=== PATIENT | male | born 1945 | race Caucasian/White ===

== ENCOUNTER 2018-03-26 04:53 | Inpatient (IN) ==
[2018-03-26] MEDS ORDERED: KETOROLAC 30 MG/1 ML VIAL IV STA (05:25)
[2018-03-26] MEDS ORDERED: ASPIRIN 325 MG TABLET PO STA (05:25)
[2018-03-26 05:49] LABS: Basophils % 0.3 % (0.0-0.8); Eosinophils # 0.2 10*3/uL (0.0-0.87); Eosinophils % 2.9 % (0.00-10.9); Hematocrit 37.4 VOL% (42.0-52.0); Hemoglobin 12.9 GM/DL (14.0-18.0); Immature Granulocytes % 0.5 %; Immature Granulocytes Absolute 0.04 #; Lymphocytes # 1.9 10*3/uL (1.4-4.0); Lymphocytes % 25.2 % (21.2-54.2); Mean Corpuscular HGB Conc 34.5 GM/DL (32-36); Mean Corpuscular Hemoglobin 27 PG (27-34); Mean Corpuscular Volume 79.4 FL (87-102); Mean Platelet Volume 9.9 FL (9.6-12.0); Monocytes # 0.6 10*3/uL (0.11-0.8); Monocytes % 8.1 % (1.7-12.7); Neutrophils # 4.8 10*3/uL (1.4-7.4); Platelet Count 242 T/CUMM (130-400); Red Blood Count 4.71 MC/CUMM (3.8-5.5); Red Cell Distribution Width 13.1 % (9.3-17.3); White Blood Count 7.6 T/CUMM (4-12)
[2018-03-26 06:10] LABS: Albumin 2.8 G/DL (3.4-5.0); Bilirubin,Total 1.3 MG/DL (0.2-1.0); Calcium 9.5 MG/DL (8.5-10.1); Osmolality,Calculated 281.1 MOS/KG (273-304); Potassium 3.7 MMOL/L (3.5-5.1)
[2018-03-26] MEDS ORDERED: ACETAMINOPHEN 325 MG TABLET PO PRN (08:39)
[2018-03-26] MEDS ORDERED: ONDANSETRON 4 MG/2 ML VIAL IV PRN (08:39)
[2018-03-26] MEDS ORDERED: GLUCAGON 1 MG VIAL IM PRN (08:45)
[2018-03-26] MEDS ORDERED: DEXTROSE 50% 25 GM/50 ML VIAL IV PRN (08:45)
[2018-03-26] MEDS ORDERED: MORPHINE 4 MG/1 ML VIAL IV PRN (08:47)
[2018-03-26 10:27] LABS: Hepatitis A Ab IgM Quant 0.13 Index; Hepatitis A Ab IgM Result Negative (Negative); Hepatitis B Core IgM Result Negative (Negative); Hepatitis B Surface Ag Quant 0.22 Index; Hepatitis B Surface Ag Result Negative (Negative); Hepatitis C Virus Ab Quant 0.05 Index; Hepatitis C Virus Ab Result Negative (Negative)
[2018-03-26] MEDS ORDERED: IPRATROPIUM 500 MCG/2.5 ML NEB RESP TX SCH (11:00)
[2018-03-26] MEDS: FOSINOPRIL 20 MG TABLET PO SCH (11:13)
[2018-03-26] MEDS: ATENOLOL 25 MG TABLET PO SCH ×2 (11:14→21:10)
[2018-03-26] MEDS: FLECAINIDE 100 MG TABLET PO SCH ×2 (11:14→21:09)
[2018-03-26] MEDS: SODIUM CHLORIDE 0.9% 1,000 ML IV SCH (11:15)
[2018-03-26] MEDS: MULTIVITAMIN (CENTRUM) TABLET PO SCH (11:15)
[2018-03-26] MEDS: ALBUTEROL/IPRATROPIUM 3 ML NEB RESP TX SCH ×2 (13:04→19:44)
[2018-03-26] MEDS: PANTOPRAZOLE 40 MG TABLET PO SCH (13:10)
[2018-03-26] MEDS: DOXYCYCLINE HYCLATE 100 MG CAPSULE PO SCH ×2 (13:26→21:10)
[2018-03-26] MEDS: ALLOPURINOL 100 MG TABLET PO SCH (13:26)
[2018-03-26] MEDS: INSULIN LISPRO 100 UNIT/ML SUBCUT SCH ×3 (13:27→21:10)
[2018-03-26] MEDS ORDERED: IPRATROPIUM 500 MCG/2.5 ML NEB RESP TX PRN (17:02)
[2018-03-26] MEDS: ACETAMINOPHEN 325 MG TABLET PO SCH ×2 (18:27→21:16)
[2018-03-26] MEDS: GABAPENTIN 100 MG CAPSULE PO SCH ×2 (18:29→21:15)
[2018-03-26] MEDS ORDERED: TAMSULOSIN 0.4 MG CAPSULE PO SCH (21:00)
[2018-03-27] MEDS: ALBUTEROL/IPRATROPIUM 3 ML NEB RESP TX SCH ×2 (00:44→07:35)
[2018-03-27] MEDS: SODIUM CHLORIDE 0.9% 1,000 ML IV SCH (03:05)
[2018-03-27 06:20] LABS: Basophils % 0.6 % (0.0-0.8); Eosinophils # 0.3 10*3/uL (0.0-0.87); Eosinophils % 4.2 % (0.00-10.9); Hematocrit 33.1 VOL% (42.0-52.0); Hemoglobin 11.2 GM/DL (14.0-18.0); Immature Granulocytes % 0.5 %; Immature Granulocytes Absolute 0.03 #; Lymphocytes % 30.7 % (21.2-54.2); Mean Corpuscular HGB Conc 33.8 GM/DL (32-36); Mean Corpuscular Hemoglobin 27 PG (27-34); Mean Corpuscular Volume 79.8 FL (87-102); Mean Platelet Volume 9.7 FL (9.6-12.0); Monocytes # 0.6 10*3/uL (0.11-0.8); Monocytes % 8.5 % (1.7-12.7); Neutrophils # 3.6 10*3/uL (1.4-7.4); Neutrophils % 55.5 % (38.7-73.9); Platelet Count 203 T/CUMM (130-400); Red Blood Count 4.15 MC/CUMM (3.8-5.5); Red Cell Distribution Width 13.2 % (9.3-17.3); White Blood Count 6.5 T/CUMM (4-12)
[2018-03-27 06:53] LABS: Blood Urea Nitrogen 18 MG/DL (7-18); Calcium 8.6 MG/DL (8.5-10.1); Glucose 179 MG/DL (74-106); Osmolality,Calculated 280.7 MOS/KG (273-304); Potassium 3.4 MMOL/L (3.5-5.1); Sodium 138 MMOL/L (136-145); Troponin I Only < 0.015 NG/ML (0.00-0.045)
[2018-03-27 06:55] LABS: Albumin 2.2 G/DL (3.4-5.0); Bilirubin,Total 0.9 MG/DL (0.2-1.0); Calcium 8.6 MG/DL (8.5-10.1); Osmolality,Calculated 278.8 MOS/KG (273-304); Potassium 3.4 MMOL/L (3.5-5.1); Total Protein 6.1 G/DL (6.4-8.3)
[2018-03-27 08:32] VITALS: BP 149/70
[2018-03-27] MEDS: DOXYCYCLINE HYCLATE 100 MG CAPSULE PO SCH (08:47)
[2018-03-27] MEDS: PANTOPRAZOLE 40 MG TABLET PO SCH (08:47)
[2018-03-27] MEDS: MULTIVITAMIN (CENTRUM) TABLET PO SCH (08:47)
[2018-03-27] MEDS: GABAPENTIN 100 MG CAPSULE PO SCH (08:47)
[2018-03-27] MEDS: ACETAMINOPHEN 325 MG TABLET PO SCH (08:47)
[2018-03-27] MEDS: FOSINOPRIL 20 MG TABLET PO SCH (08:47)
[2018-03-27] MEDS: ATENOLOL 25 MG TABLET PO SCH (08:47)
[2018-03-27] MEDS: ALLOPURINOL 100 MG TABLET PO SCH (08:47)
[2018-03-27] MEDS: FLECAINIDE 100 MG TABLET PO SCH (08:48)
[2018-03-27] MEDS: INSULIN LISPRO 100 UNIT/ML SUBCUT SCH (08:49)
== END 2018-03-27 11:58 | disposition home or self-care (01) | DRG 313 ==
LOC: N.ED 04:53 → N.EDINP 08:39 → N.2W 11:14 → N.TELEN 15:01
PROVIDERS: ADMIT Internal Medicine; ATTEND Internal Medicine

== ENCOUNTER 2018-05-10 11:04 | Inpatient (IN) ==
[2018-05-10] MEDS ORDERED: METOCLOPRAMIDE 10 MG/2 ML VIAL IV STA ×2 (12:12→14:08)
[2018-05-10] MEDS ORDERED: ONDANSETRON 4 MG/2 ML VIAL IV STA ×2 (12:12→14:08)
[2018-05-10] MEDS ORDERED: MEPERIDINE 25 MG/1 ML VIAL IV STA (12:31)
[2018-05-10 12:43] LABS: Basophils % 0.4 % (0.0-0.8); Eosinophils # 0.1 10*3/uL (0.0-0.87); Hematocrit 31.3 VOL% (42.0-52.0); Hemoglobin 9.8 GM/DL (14.0-18.0); Immature Granulocytes % 2.3 %; Immature Granulocytes Absolute 0.18 #; Lymphocytes # 1.6 10*3/uL (1.4-4.0); Lymphocytes % 20.2 % (21.2-54.2); Mean Corpuscular HGB Conc 31.3 GM/DL (32-36); Mean Corpuscular Hemoglobin 24 PG (27-34); Mean Corpuscular Volume 76.9 FL (87-102); Mean Platelet Volume 9.6 FL (9.6-12.0); Monocytes # 0.6 10*3/uL (0.11-0.8); Monocytes % 8.1 % (1.7-12.7); Neutrophils # 5.3 10*3/uL (1.4-7.4); Platelet Count 262 T/CUMM (130-400); Red Blood Count 4.07 MC/CUMM (3.8-5.5); Red Cell Distribution Width 14.5 % (9.3-17.3); White Blood Count 7.8 T/CUMM (4-12)
[2018-05-10 12:52] LABS: INR 1.1; PT Patient Result 11.4 SECS
[2018-05-10 13:21] LABS: Alanine Aminotransferase 29 U/L (16-61); Albumin 2.1 G/DL (3.4-5.0); Alkaline Phosphatase 557 U/L (45-117); Amylase 20 U/L (25-115); Aspartate Amino Transferase 163 U/L (0-37); Blood Urea Nitrogen 22 MG/DL (7-18); Calcium 9.6 MG/DL (8.5-10.1); Glucose 201 MG/DL (74-106); Lactic Acid 2.3 MMOL/L (0.4-2.0); Osmolality,Calculated 283.7 MOS/KG (273-304); Potassium 3.6 MMOL/L (3.5-5.1); Sodium 138 MMOL/L (136-145); Total Protein 6.8 G/DL (6.4-8.3)
[2018-05-10 13:28] LABS: Ammonia 46 UMOL/L (11-32)
[2018-05-10] MEDS ORDERED: cefTRIAXone 1,000 MG in SODIUM CHLORIDE 0.9% 100 ML IV STA (13:32)
[2018-05-10] MEDS ORDERED: metroNIDAZOLE INJ 500 MG in PREMIX 1 EACH IV STA (13:33)
[2018-05-10 14:29] LABS: Apearance,Urine Clear (Clear); Urine Color Yellow (Yellow)
[2018-05-10 14:30] LABS: Protein,Urine 3+ MG/DL
[2018-05-10 14:31] LABS: Bilirubin,Urine Negative (Negative); Blood, Urine Trace mg/dL (Negative); Glucose,Urine (UA) 2+ mg/dL (Negative); Ketones,Urine Negative (Negative); Nitrite,Urine Negative (Negative); Urine Urobilinogen 0.2 EU/DL (0.2-1.0)
[2018-05-10] MEDS ORDERED: ONDANSETRON 4 MG/2 ML VIAL IV PRN ×2 (17:08→19:51)
[2018-05-10 17:24] LABS: Lactic Acid 2.3 MMOL/L (0.4-2.0)
[2018-05-10] MEDS ORDERED: DEXTROSE 50% 25 GM/50 ML VIAL IV PRN (17:26)
[2018-05-10] MEDS ORDERED: GLUCAGON 1 MG VIAL IM PRN (17:26)
[2018-05-10] MEDS ORDERED: MYLANTA/LIDO VISC 2:1 300 ML BOTTLE SWISH/SPIT PRN (19:51)
[2018-05-10] MEDS ORDERED: chlorproMAZINE INJ 25 MG in SODIUM CHLORIDE 0.9% 100 ML IV PRN (19:51)
[2018-05-10] MEDS ORDERED: chlorproMAZINE 25 MG TABLET PO PRN (19:51)
[2018-05-10] MEDS ORDERED: BENZTROPINE 2 MG/2 ML AMP IV PRN (19:51)
[2018-05-10] MEDS ORDERED: MYLANTA/LIDO VISC 2:1 300 ML BOTTLE SWISH/SWAL PRN (19:51)
[2018-05-10] MEDS ORDERED: ACETAMINOPHEN 325 MG TABLET PO PRN (19:51)
[2018-05-10] MEDS ORDERED: diphenhydrAMINE CAP 25 MG CAPSULE PO PRN (19:51)
[2018-05-10] MEDS ORDERED: chlorproMAZINE INJ 50 MG in SODIUM CHLORIDE 0.9% 100 ML IV PRN (19:51)
[2018-05-10] MEDS ORDERED: TEMAZEPAM 7.5 MG CAPSULE PO PRN (19:51)
[2018-05-10] MEDS ORDERED: ALPRAZolam 0.25 MG TABLET PO PRN (19:51)
[2018-05-10] MEDS ORDERED: guaiFENesin 200 MG/10 ML UDCUP PO PRN (19:51)
[2018-05-10] MEDS ORDERED: PROMETHAZINE INJ 25 MG in SODIUM CHLORIDE 0.9% 50 ML IV PRN (19:51)
[2018-05-10] MEDS ORDERED: ALUMINUM/MAGNES/SIMETH MAX STR 30 ML UDCUP PO PRN (19:51)
[2018-05-10] MEDS ORDERED: LOPERAMIDE 2 MG CAPSULE PO PRN ×2 (19:51)
[2018-05-10] MEDS ORDERED: MAGNESIUM HYDROXIDE SUSP 30 ML UDCUP PO PRN (19:51)
[2018-05-10] MEDS: SODIUM CHLORIDE 0.9% 1,000 ML IV SCH (20:28)
[2018-05-10] MEDS: INSULIN REGULAR 100 UNIT/ML SUBCUT SCH (21:20)
[2018-05-10] MEDS: TAMSULOSIN 0.4 MG CAPSULE PO SCH (22:38)
[2018-05-10] MEDS: ATENOLOL 25 MG TABLET PO SCH (22:38)
[2018-05-10] MEDS: FLECAINIDE 100 MG TABLET PO SCH (22:38)
[2018-05-10] MEDS: traMADol 50 MG TABLET PO PRN (22:42)
[2018-05-11] MEDS ORDERED: MEPERIDINE 50 MG/1 ML VIAL IV ONE (01:53)
[2018-05-11] MEDS: SODIUM CHLORIDE 0.9% 1,000 ML IV SCH ×2 (03:54→17:31)
[2018-05-11 05:14] LABS: Basophils % 0.5 % (0.0-0.8); Eosinophils # 0.1 10*3/uL (0.0-0.87); Eosinophils % 1.7 % (0.00-10.9); Hemoglobin 8.9 GM/DL (14.0-18.0); Immature Granulocytes % 4.7 %; Immature Granulocytes Absolute 0.28 #; Lymphocytes # 1.3 10*3/uL (1.4-4.0); Lymphocytes % 22.5 % (21.2-54.2); Mean Corpuscular HGB Conc 31.8 GM/DL (32-36); Mean Corpuscular Hemoglobin 25 PG (27-34); Mean Corpuscular Volume 77.8 FL (87-102); Mean Platelet Volume 10.1 FL (9.6-12.0); Monocytes # 0.5 10*3/uL (0.11-0.8); Monocytes % 9.1 % (1.7-12.7); NRBC # 0.02 10*3/uL; Neutrophils # 3.7 10*3/uL (1.4-7.4); Neutrophils % 61.5 % (38.7-73.9); Platelet Count 229 T/CUMM (130-400); Red Cell Distribution Width 14.6 % (9.3-17.3)
[2018-05-11 05:37] LABS: Calcium 9.2 MG/DL (8.5-10.1); Osmolality,Calculated 281.5 MOS/KG (273-304); Potassium 3.3 MMOL/L (3.5-5.1)
[2018-05-11] MEDS: traMADol 50 MG TABLET PO PRN (06:36)
[2018-05-11] MEDS: HYDROmorphone 2 MG/1 ML VIAL IV PRN ×3 (08:59→17:20)
[2018-05-11] MEDS: FLECAINIDE 100 MG TABLET PO SCH ×2 (09:04→20:25)
[2018-05-11] MEDS: ALLOPURINOL 300 MG TABLET PO SCH (09:04)
[2018-05-11] MEDS: FOSINOPRIL 20 MG TABLET PO SCH (09:05)
[2018-05-11] MEDS: ATENOLOL 25 MG TABLET PO SCH ×2 (09:05→20:25)
[2018-05-11] MEDS: PANTOPRAZOLE 40 MG TABLET PO SCH (09:05)
[2018-05-11] MEDS: ASPIRIN EC 325 MG TABLET PO SCH (09:05)
[2018-05-11] MEDS: MULTIVITAMIN (CENTRUM) TABLET PO SCH (09:05)
[2018-05-11] MEDS: INSULIN REGULAR 100 UNIT/ML SUBCUT SCH ×4 (09:30→20:26)
[2018-05-11 10:25] LABS: Basophils % 0.4 % (0.0-0.8); Eosinophils # 0.1 10*3/uL (0.0-0.87); Eosinophils % 1.8 % (0.00-10.9); Hematocrit 27.9 VOL% (42.0-52.0); Hemoglobin 8.9 GM/DL (14.0-18.0); Immature Granulocytes % 2.6 %; Immature Granulocytes Absolute 0.15 #; Lymphocytes # 1.1 10*3/uL (1.4-4.0); Lymphocytes % 19.3 % (21.2-54.2); Mean Corpuscular HGB Conc 31.9 GM/DL (32-36); Mean Corpuscular Hemoglobin 25 PG (27-34); Mean Corpuscular Volume 77.9 FL (87-102); Mean Platelet Volume 9.9 FL (9.6-12.0); Monocytes # 0.4 10*3/uL (0.11-0.8); Monocytes % 7.7 % (1.7-12.7); Neutrophils # 3.9 10*3/uL (1.4-7.4); Neutrophils % 68.2 % (38.7-73.9); Platelet Count 203 T/CUMM (130-400); Red Blood Count 3.58 MC/CUMM (3.8-5.5); Red Cell Distribution Width 14.4 % (9.3-17.3); White Blood Count 5.7 T/CUMM (4-12)
[2018-05-11] MEDS: POTASSIUM CHLORIDE 20 MEQ TABLET PO PRN ×2 (10:59→14:56)
[2018-05-11] MEDS: GRANISETRON 1 MG/1 ML VIAL IV SCH (14:51)
[2018-05-11] MEDS: DEXAMETHASONE 10 MG/1 ML VIAL IV SCH (14:52)
[2018-05-11] MEDS: diphenhydrAMINE 50 MG/1 ML VIAL IV SCH (14:54)
[2018-05-11] MEDS: ETOPOSIDE 200 MG in SODIUM CHLORIDE 0.9% 500 ML IV SCH (15:03)
[2018-05-11] MEDS: TAMSULOSIN 0.4 MG CAPSULE PO SCH (20:25)
[2018-05-12] MEDS: SODIUM CHLORIDE 0.9% 1,000 ML IV SCH ×3 (04:47→13:51)
[2018-05-12 04:56] LABS: Basophils % 0.2 % (0.0-0.8); Eosinophils % 0.2 % (0.00-10.9); Hematocrit 27.9 VOL% (42.0-52.0); Hemoglobin 8.8 GM/DL (14.0-18.0); Immature Granulocytes % 4.5 %; Immature Granulocytes Absolute 0.27 #; Lymphocytes # 0.7 10*3/uL (1.4-4.0); Lymphocytes % 12.2 % (21.2-54.2); Mean Corpuscular HGB Conc 31.5 GM/DL (32-36); Mean Corpuscular Hemoglobin 25 PG (27-34); Mean Corpuscular Volume 77.9 FL (87-102); Mean Platelet Volume 10.2 FL (9.6-12.0); Monocytes # 0.4 10*3/uL (0.11-0.8); Monocytes % 6.2 % (1.7-12.7); Neutrophils # 4.6 10*3/uL (1.4-7.4); Neutrophils % 76.7 % (38.7-73.9); Platelet Count 248 T/CUMM (130-400); Red Blood Count 3.58 MC/CUMM (3.8-5.5); Red Cell Distribution Width 14.6 % (9.3-17.3)
[2018-05-12 05:40] LABS: Albumin 1.7 G/DL (3.4-5.0); Bilirubin,Total 0.6 MG/DL (0.2-1.0); Calcium 9.3 MG/DL (8.5-10.1); Osmolality,Calculated 292.3 MOS/KG (273-304); Uric Acid 6.6 MG/DL (3.5-7.2)
[2018-05-12] MEDS: ATENOLOL 25 MG TABLET PO SCH ×2 (09:27→20:29)
[2018-05-12] MEDS: ALLOPURINOL 300 MG TABLET PO SCH (09:27)
[2018-05-12] MEDS: MULTIVITAMIN (CENTRUM) TABLET PO SCH (09:27)
[2018-05-12] MEDS: FOSINOPRIL 20 MG TABLET PO SCH (09:27)
[2018-05-12] MEDS: FLECAINIDE 100 MG TABLET PO SCH ×2 (09:27→20:28)
[2018-05-12] MEDS: PANTOPRAZOLE 40 MG TABLET PO SCH (09:27)
[2018-05-12] MEDS: ASPIRIN EC 325 MG TABLET PO SCH (09:27)
[2018-05-12] MEDS: INSULIN REGULAR 100 UNIT/ML SUBCUT SCH ×4 (09:30→20:30)
[2018-05-12] MEDS: POLYETHYLENE GLYCOL POWDER 17 GM PACK PO SCH (11:09)
[2018-05-12] MEDS: HYDROmorphone 2 MG/1 ML VIAL IV PRN ×4 (11:09→20:29)
[2018-05-12] MEDS: GRANISETRON 1 MG/1 ML VIAL IV SCH (14:09)
[2018-05-12] MEDS: DEXAMETHASONE 10 MG/1 ML VIAL IV SCH (14:10)
[2018-05-12] MEDS: diphenhydrAMINE 50 MG/1 ML VIAL IV SCH (14:12)
[2018-05-12] MEDS: ETOPOSIDE 200 MG in SODIUM CHLORIDE 0.9% 500 ML IV SCH (15:35)
[2018-05-12] MEDS: LACTULOSE 20 GM/30 ML UDCUP PO PRN (20:29)
[2018-05-12] MEDS: TAMSULOSIN 0.4 MG CAPSULE PO SCH (20:30)
[2018-05-13] MEDS: SODIUM CHLORIDE 0.9% 1,000 ML IV SCH ×2 (00:15→15:16)
[2018-05-13 04:33] LABS: Basophils % 0.2 % (0.0-0.8); Hematocrit 25.5 VOL% (42.0-52.0); Immature Granulocytes % 1.2 %; Immature Granulocytes Absolute 0.07 #; Lymphocytes # 0.5 10*3/uL (1.4-4.0); Lymphocytes % 8.9 % (21.2-54.2); Mean Corpuscular HGB Conc 31.4 GM/DL (32-36); Mean Corpuscular Hemoglobin 25 PG (27-34); Mean Corpuscular Volume 78.5 FL (87-102); Monocytes # 0.2 10*3/uL (0.11-0.8); Monocytes % 2.9 % (1.7-12.7); Neutrophils # 5.1 10*3/uL (1.4-7.4); Neutrophils % 86.8 % (38.7-73.9); Platelet Count 221 T/CUMM (130-400); Red Blood Count 3.25 MC/CUMM (3.8-5.5); Red Cell Distribution Width 14.7 % (9.3-17.3); White Blood Count 5.8 T/CUMM (4-12)
[2018-05-13 04:50] LABS: Albumin 1.7 G/DL (3.4-5.0); Bilirubin,Total 0.7 MG/DL (0.2-1.0); Calcium 8.9 MG/DL (8.5-10.1); Osmolality,Calculated 289.8 MOS/KG (273-304); Potassium 4.6 MMOL/L (3.5-5.1); Total Protein 5.9 G/DL (6.4-8.3); Uric Acid 5.7 MG/DL (3.5-7.2)
[2018-05-13] MEDS: FOSINOPRIL 20 MG TABLET PO SCH (08:32)
[2018-05-13] MEDS: FLECAINIDE 100 MG TABLET PO SCH ×2 (08:36→20:00)
[2018-05-13] MEDS: MULTIVITAMIN (CENTRUM) TABLET PO SCH (08:36)
[2018-05-13] MEDS: ALLOPURINOL 300 MG TABLET PO SCH (08:37)
[2018-05-13] MEDS: PANTOPRAZOLE 40 MG TABLET PO SCH (08:37)
[2018-05-13] MEDS: POLYETHYLENE GLYCOL POWDER 17 GM PACK PO SCH (08:37)
[2018-05-13] MEDS: ASPIRIN EC 325 MG TABLET PO SCH (08:37)
[2018-05-13] MEDS: ATENOLOL 25 MG TABLET PO SCH ×2 (08:37→20:00)
[2018-05-13] MEDS: INSULIN GLARGINE 100 UNIT/ML SUBCUT SCH (08:38)
[2018-05-13] MEDS: INSULIN REGULAR 100 UNIT/ML SUBCUT SCH ×4 (08:38→20:35)
[2018-05-13] MEDS: HYDROmorphone 2 MG/1 ML VIAL IV PRN ×4 (10:47→19:50)
[2018-05-13] MEDS ORDERED: CARBOplatin 200 MG in SODIUM CHLORIDE 0.9% 250 ML IV ONE (13:30)
[2018-05-13] MEDS ORDERED: GRANISETRON 1 MG/1 ML VIAL IV ONE (15:00)
[2018-05-13] MEDS ORDERED: DEXAMETHASONE 10 MG/1 ML VIAL IV ONE (15:00)
[2018-05-13] MEDS ORDERED: diphenhydrAMINE 50 MG/1 ML VIAL IV ONE (15:00)
[2018-05-13] MEDS: ETOPOSIDE 200 MG in SODIUM CHLORIDE 0.9% 500 ML IV SCH (16:06)
[2018-05-13] MEDS: TAMSULOSIN 0.4 MG CAPSULE PO SCH (20:01)
[2018-05-14 05:21] LABS: Hematocrit 26.1 VOL% (42.0-52.0); Hemoglobin 8.4 GM/DL (14.0-18.0); Immature Granulocytes Absolute 0.06 #; Lymphocytes # 0.5 10*3/uL (1.4-4.0); Lymphocytes % 8.2 % (21.2-54.2); Mean Corpuscular HGB Conc 32.2 GM/DL (32-36); Mean Corpuscular Hemoglobin 25 PG (27-34); Mean Corpuscular Volume 77.2 FL (87-102); Mean Platelet Volume 10.1 FL (9.6-12.0); Monocytes # 0.1 10*3/uL (0.11-0.8); Monocytes % 0.8 % (1.7-12.7); Neutrophils # 5.6 10*3/uL (1.4-7.4); Platelet Count 206 T/CUMM (130-400); Red Blood Count 3.38 MC/CUMM (3.8-5.5); Red Cell Distribution Width 14.6 % (9.3-17.3); White Blood Count 6.2 T/CUMM (4-12)
[2018-05-14 05:54] LABS: Bilirubin,Total 0.6 MG/DL (0.2-1.0); Calcium 8.6 MG/DL (8.5-10.1); Osmolality,Calculated 288.2 MOS/KG (273-304); Potassium 4.6 MMOL/L (3.5-5.1); Total Protein 5.9 G/DL (6.4-8.3); Uric Acid 4.7 MG/DL (3.5-7.2)
[2018-05-14] MEDS: DEXAMETHASONE 10 MG/1 ML VIAL IV SCH (07:51)
[2018-05-14] MEDS: diphenhydrAMINE 50 MG/1 ML VIAL IV SCH (07:51)
[2018-05-14] MEDS: GRANISETRON 1 MG/1 ML VIAL IV SCH (07:52)
[2018-05-14] MEDS: SODIUM CHLORIDE 0.9% 1,000 ML IV SCH ×2 (07:52→12:56)
[2018-05-14] MEDS: POLYETHYLENE GLYCOL POWDER 17 GM PACK PO SCH (08:54)
[2018-05-14] MEDS: INSULIN GLARGINE 100 UNIT/ML SUBCUT SCH (08:55)
[2018-05-14] MEDS: INSULIN REGULAR 100 UNIT/ML SUBCUT SCH ×4 (08:55→20:40)
[2018-05-14] MEDS: ALLOPURINOL 300 MG TABLET PO SCH (08:56)
[2018-05-14] MEDS: ASPIRIN EC 325 MG TABLET PO SCH (08:56)
[2018-05-14] MEDS: MULTIVITAMIN (CENTRUM) TABLET PO SCH (08:56)
[2018-05-14] MEDS: HYDROmorphone 2 MG TABLET PO PRN ×4 (08:56→19:53)
[2018-05-14] MEDS: FOSINOPRIL 20 MG TABLET PO SCH (08:56)
[2018-05-14] MEDS: FLECAINIDE 100 MG TABLET PO SCH ×2 (08:56→20:39)
[2018-05-14] MEDS: ATENOLOL 25 MG TABLET PO SCH ×2 (08:56→20:39)
[2018-05-14] MEDS: PANTOPRAZOLE 40 MG TABLET PO SCH (08:56)
[2018-05-14] MEDS: TAMSULOSIN 0.4 MG CAPSULE PO SCH (20:39)
[2018-05-15] MEDS: SODIUM CHLORIDE 0.9% 1,000 ML IV SCH ×2 (00:05→21:15)
[2018-05-15] MEDS: HYDROmorphone 2 MG TABLET PO PRN ×3 (02:26→19:14)
[2018-05-15 05:09] LABS: Eosinophils % 0.4 % (0.00-10.9); Hematocrit 25.1 VOL% (42.0-52.0); Hemoglobin 8.2 GM/DL (14.0-18.0); Immature Granulocytes % 0.7 %; Immature Granulocytes Absolute 0.05 #; Lymphocytes # 0.9 10*3/uL (1.4-4.0); Lymphocytes % 13.3 % (21.2-54.2); Mean Corpuscular HGB Conc 32.7 GM/DL (32-36); Mean Corpuscular Hemoglobin 24 PG (27-34); Mean Corpuscular Volume 74.5 FL (87-102); Mean Platelet Volume 10.1 FL (9.6-12.0); Monocytes % 0.4 % (1.7-12.7); Neutrophils # 5.9 10*3/uL (1.4-7.4); Neutrophils % 85.2 % (38.7-73.9); Platelet Count 212 T/CUMM (130-400); Red Blood Count 3.37 MC/CUMM (3.8-5.5); Red Cell Distribution Width 14.6 % (9.3-17.3); White Blood Count 6.9 T/CUMM (4-12)
[2018-05-15 05:34] LABS: Albumin 1.9 G/DL (3.4-5.0); Calcium 8.2 MG/DL (8.5-10.1); Osmolality,Calculated 275.1 MOS/KG (273-304); Potassium 3.9 MMOL/L (3.5-5.1); Total Protein 5.5 G/DL (6.4-8.3); Uric Acid 5.1 MG/DL (3.5-7.2)
[2018-05-15] MEDS: INSULIN REGULAR 100 UNIT/ML SUBCUT SCH ×4 (07:59→21:11)
[2018-05-15] MEDS ORDERED: SODIUM CHLORIDE 0.9% 1,000 ML IV PRN (08:39)
[2018-05-15] MEDS: FLECAINIDE 100 MG TABLET PO SCH ×2 (10:06→21:10)
[2018-05-15] MEDS: ALLOPURINOL 300 MG TABLET PO SCH (10:06)
[2018-05-15] MEDS: INSULIN GLARGINE 100 UNIT/ML SUBCUT SCH (10:06)
[2018-05-15] MEDS: ATENOLOL 25 MG TABLET PO SCH ×2 (10:07→21:11)
[2018-05-15] MEDS: ASPIRIN EC 325 MG TABLET PO SCH (10:07)
[2018-05-15] MEDS: MULTIVITAMIN (CENTRUM) TABLET PO SCH (10:07)
[2018-05-15] MEDS: PANTOPRAZOLE 40 MG TABLET PO SCH (10:07)
[2018-05-15] MEDS: FOSINOPRIL 20 MG TABLET PO SCH (10:07)
[2018-05-15] MEDS: POLYETHYLENE GLYCOL POWDER 17 GM PACK PO SCH (12:42)
[2018-05-15] MEDS: TAMSULOSIN 0.4 MG CAPSULE PO SCH (21:11)
[2018-05-16 04:40] LABS: Basophils % 0.2 % (0.0-0.8); Eosinophils # 0.2 10*3/uL (0.0-0.87); Eosinophils % 2.7 % (0.00-10.9); Hematocrit 29.9 VOL% (42.0-52.0); Hemoglobin 9.7 GM/DL (14.0-18.0); Immature Granulocytes % 1.2 %; Immature Granulocytes Absolute 0.07 #; Lymphocytes # 1.1 10*3/uL (1.4-4.0); Lymphocytes % 18.1 % (21.2-54.2); Mean Corpuscular HGB Conc 32.4 GM/DL (32-36); Mean Corpuscular Hemoglobin 25 PG (27-34); Mean Corpuscular Volume 76.5 FL (87-102); Mean Platelet Volume 9.4 FL (9.6-12.0); Monocytes % 0.5 % (1.7-12.7); Neutrophils # 4.7 10*3/uL (1.4-7.4); Neutrophils % 77.3 % (38.7-73.9); Platelet Count 230 T/CUMM (130-400); Red Blood Count 3.91 MC/CUMM (3.8-5.5); Red Cell Distribution Width 14.6 % (9.3-17.3)
[2018-05-16 05:12] LABS: Albumin 1.7 G/DL (3.4-5.0); Bilirubin,Total 1.3 MG/DL (0.2-1.0); Calcium 8.5 MG/DL (8.5-10.1); Osmolality,Calculated 279.1 MOS/KG (273-304); Potassium 3.8 MMOL/L (3.5-5.1); Total Protein 5.4 G/DL (6.4-8.3); Uric Acid 4.9 MG/DL (3.5-7.2)
[2018-05-16] MEDS: POLYETHYLENE GLYCOL POWDER 17 GM PACK PO SCH (09:39)
[2018-05-16] MEDS: PANTOPRAZOLE 40 MG TABLET PO SCH (09:40)
[2018-05-16] MEDS: FOSINOPRIL 20 MG TABLET PO SCH (09:40)
[2018-05-16] MEDS: FLECAINIDE 100 MG TABLET PO SCH ×2 (09:40→20:03)
[2018-05-16] MEDS: INSULIN GLARGINE 100 UNIT/ML SUBCUT SCH (09:41)
[2018-05-16] MEDS: INSULIN REGULAR 100 UNIT/ML SUBCUT SCH ×4 (09:41→20:11)
[2018-05-16] MEDS: MULTIVITAMIN (CENTRUM) TABLET PO SCH (09:41)
[2018-05-16] MEDS: ASPIRIN EC 325 MG TABLET PO SCH (09:47)
[2018-05-16] MEDS: ALLOPURINOL 300 MG TABLET PO SCH (09:51)
[2018-05-16] MEDS: ATENOLOL 25 MG TABLET PO SCH ×2 (09:51→20:04)
[2018-05-16] MEDS: LACTULOSE 20 GM/30 ML UDCUP PO PRN (12:32)
[2018-05-16] MEDS: SODIUM CHLORIDE 0.9% 1,000 ML IV SCH (12:33)
[2018-05-16] MEDS: TAMSULOSIN 0.4 MG CAPSULE PO SCH (20:03)
[2018-05-17] MEDS: SODIUM CHLORIDE 0.9% 1,000 ML IV SCH (02:01)
[2018-05-17 04:16] LABS: Basophils % 0.4 % (0.0-0.8); Eosinophils # 0.2 10*3/uL (0.0-0.87); Eosinophils % 3.4 % (0.00-10.9); Hematocrit 28.1 VOL% (42.0-52.0); Hemoglobin 9.4 GM/DL (14.0-18.0); Immature Granulocytes % 2.4 %; Immature Granulocytes Absolute 0.12 #; Lymphocytes % 20.5 % (21.2-54.2); Mean Corpuscular HGB Conc 33.5 GM/DL (32-36); Mean Corpuscular Hemoglobin 25 PG (27-34); Mean Corpuscular Volume 74.7 FL (87-102); Mean Platelet Volume 9.4 FL (9.6-12.0); Monocytes % 0.4 % (1.7-12.7); Neutrophils # 3.7 10*3/uL (1.4-7.4); Neutrophils % 72.9 % (38.7-73.9); Platelet Count 205 T/CUMM (130-400); Red Blood Count 3.76 MC/CUMM (3.8-5.5); Red Cell Distribution Width 14.7 % (9.3-17.3)
[2018-05-17 04:47] LABS: Albumin 1.6 G/DL (3.4-5.0); Bilirubin,Total 1.2 MG/DL (0.2-1.0); Calcium 8.4 MG/DL (8.5-10.1); Osmolality,Calculated 277.8 MOS/KG (273-304); Potassium 3.4 MMOL/L (3.5-5.1); Total Protein 5.4 G/DL (6.4-8.3); Uric Acid 3.9 MG/DL (3.5-7.2)
[2018-05-17] MEDS: FOSINOPRIL 20 MG TABLET PO SCH (09:31)
[2018-05-17] MEDS: ALLOPURINOL 300 MG TABLET PO SCH (09:31)
[2018-05-17] MEDS: PANTOPRAZOLE 40 MG TABLET PO SCH (09:31)
[2018-05-17] MEDS: FLECAINIDE 100 MG TABLET PO SCH (09:32)
[2018-05-17] MEDS: ATENOLOL 25 MG TABLET PO SCH (09:32)
[2018-05-17] MEDS: MULTIVITAMIN (CENTRUM) TABLET PO SCH (09:32)
[2018-05-17] MEDS: ASPIRIN EC 325 MG TABLET PO SCH (09:32)
[2018-05-17] MEDS: INSULIN GLARGINE 100 UNIT/ML SUBCUT SCH (09:32)
[2018-05-17] MEDS: INSULIN REGULAR 100 UNIT/ML SUBCUT SCH ×2 (11:39→12:52)
[2018-05-17] MEDS: POLYETHYLENE GLYCOL POWDER 17 GM PACK PO SCH (11:39)
[2018-05-17 12:29] VITALS: BP 151/68
== END 2018-05-17 12:10 | disposition home or self-care (01) | DRG 844 ==
LOC: N.ED 11:04 → N.EDINP 17:08 → SUATTDRO 17:08 → SUPCPDRO 17:08 → N.4E 19:30
PROVIDERS: ADMIT Internal Medicine Geriatric Medicine; ATTEND Internal Medicine

== ENCOUNTER 2019-11-25 12:37 | Inpatient (IN) ==
[2019-11-25] MEDS ORDERED: cefTRIAXone 1,000 MG in SODIUM CHLORIDE 0.9% 100 ML IV STA (15:29)
[2019-11-25 16:12] LABS: Basophils % 0.5 % (0.0-0.8); Eosinophils # 0.2 10*3/uL (0.0-0.87); Eosinophils % 4.2 % (0.00-10.9); Hematocrit 45.6 VOL% (42.0-52.0); Hemoglobin 14.8 GM/DL (14.0-18.0); Immature Granulocytes % 0.2 %; Immature Granulocytes Absolute 0.01 #; Lymphocytes # 0.8 10*3/uL (1.4-4.0); Lymphocytes % 20.8 % (21.2-54.2); Mean Corpuscular HGB Conc 32.5 GM/DL (32-36); Mean Corpuscular Volume 83.5 FL (87-102); Mean Platelet Volume 9.9 FL (9.6-12.0); Monocytes % 5.5 % (1.7-12.7); Neutrophils % 68.8 % (38.7-73.9); Platelet Count 110 T/CUMM (130-400); Red Blood Count 5.46 MC/CUMM (3.8-5.5); Red Cell Distribution Width 14.3 % (9.3-17.3)
[2019-11-25 16:29] LABS: PT Patient Result 10.9 SECS (9.6-12.2)
[2019-11-25 16:36] LABS: Troponin I 0.034 NG/ML (0.00-0.045)
[2019-11-25 16:37] LABS: Partial Thromboplastin Time 42.2 SECS (20.8-36.0)
[2019-11-25 17:02] LABS: Albumin 2.7 G/DL (3.4-5.0); Bilirubin,Total 0.8 MG/DL (0.2-1.0); Calcium 8.4 MG/DL (8.5-10.1); Osmolality,Calculated 284.7 MOS/KG (273-304); Total Protein 6.4 G/DL (6.4-8.3)
[2019-11-25] MEDS ORDERED: MAGNESIUM SULF RIDER 2 GM in PREMIX 1 EACH IV PRN (19:09)
[2019-11-25] MEDS ORDERED: MAGNESIUM SULF RIDER 4 GM in PREMIX 1 EACH IV PRN (19:09)
[2019-11-25] MEDS ORDERED: ACETAMINOPHEN 325 MG TABLET PO PRN (19:09)
[2019-11-25] MEDS ORDERED: DEXTROSE 50% 25 GM/50 ML SYRINGE IV PRN (21:39)
[2019-11-25] MEDS ORDERED: hydrALAZINE 20 MG/1 ML VIAL IV PRN (21:39)
[2019-11-25] MEDS ORDERED: GLUCAGON 1 MG VIAL IM PRN (21:39)
[2019-11-25] MEDS: FUROSEMIDE 40 MG/4 ML VIAL IV SCH (21:48)
[2019-11-25] MEDS: ENOXAPARIN 30 MG/0.3 ML SYRINGE SUBCUT SCH (21:48)
[2019-11-25] MEDS: INSULIN REGULAR 100 UNIT/ML SUBCUT SCH (21:58)
[2019-11-25] MEDS: HYDROmorphone 2 MG TABLET PO PRN (22:26)
[2019-11-25] MEDS: lisinopriL 20 MG TABLET PO SCH (22:26)
[2019-11-25] MEDS: FLECAINIDE 100 MG TABLET PO SCH (22:26)
[2019-11-25] MEDS: atenoloL 25 MG TABLET PO SCH (22:27)
[2019-11-25] MEDS: TAMSULOSIN 0.4 MG CAPSULE PO SCH (22:27)
[2019-11-26] MEDS: ONDANSETRON 4 MG/2 ML VIAL IV PRN (02:27)
[2019-11-26] MEDS: HYDROmorphone 2 MG TABLET PO PRN ×3 (03:32→20:11)
[2019-11-26] MEDS: INSULIN REGULAR 100 UNIT/ML SUBCUT SCH ×4 (08:31→21:53)
[2019-11-26] MEDS: FUROSEMIDE 40 MG/4 ML VIAL IV SCH ×2 (08:49→16:19)
[2019-11-26] MEDS: ASPIRIN EC 325 MG TABLET PO SCH (09:20)
[2019-11-26] MEDS: lisinopriL 20 MG TABLET PO SCH (09:20)
[2019-11-26] MEDS: FLECAINIDE 100 MG TABLET PO SCH ×2 (09:21→20:06)
[2019-11-26] MEDS: metFORMIN 500 MG TABLET PO SCH ×2 (09:21→16:02)
[2019-11-26] MEDS: PANTOPRAZOLE 40 MG TABLET PO SCH (09:21)
[2019-11-26] MEDS: allopurinoL 100 MG TABLET PO SCH ×2 (09:22→20:05)
[2019-11-26] MEDS: atenoloL 25 MG TABLET PO SCH ×2 (09:22→20:05)
[2019-11-26] MEDS: TAMSULOSIN 0.4 MG CAPSULE PO SCH ×2 (09:22→20:05)
[2019-11-26 10:47] LABS: Basophils % 0.4 % (0.0-0.8); Eosinophils # 0.4 10*3/uL (0.0-0.87); Eosinophils % 5.7 % (0.00-10.9); Hematocrit 25.8 VOL% (42.0-52.0); Immature Granulocytes % 0.4 %; Immature Granulocytes Absolute 0.03 #; Lymphocytes # 1.6 10*3/uL (1.4-4.0); Lymphocytes % 22.7 % (21.2-54.2); Mean Corpuscular HGB Conc 32.6 GM/DL (32-36); Mean Corpuscular Volume 84.3 FL (87-102); Mean Platelet Volume 9.7 FL (9.6-12.0); Neutrophils % 63.8 % (38.7-73.9); Red Cell Distribution Width 14.2 % (9.3-17.3)
[2019-11-26 10:48] LABS: Red Blood Count 3.06 MC/CUMM (3.8-5.5); White Blood Count 6.8 T/CUMM (4-12)
[2019-11-26 10:49] LABS: Hemoglobin 8.4 GM/DL (14.0-18.0); Platelet Count 150 T/CUMM (130-400)
[2019-11-26 10:53] LABS: Albumin 2.5 G/DL (3.4-5.0); Bilirubin,Total 0.7 MG/DL (0.2-1.0); Calcium 8.3 MG/DL (8.5-10.1); Osmolality,Calculated 290.4 MOS/KG (273-304); Total Protein 5.8 G/DL (6.4-8.3)
[2019-11-26] MEDS ORDERED: AZITHROMYCIN 250 MG TABLET PO ONE (15:08)
[2019-11-26] MEDS: ENOXAPARIN 30 MG/0.3 ML SYRINGE SUBCUT SCH (20:05)
[2019-11-26] MEDS: cefTRIAXone 1,000 MG in SYRINGE 1 EACH IV SCH (20:07)
[2019-11-27] MEDS: HYDROmorphone 2 MG TABLET PO PRN ×3 (03:26→19:43)
[2019-11-27 04:02] LABS: Basophils % 0.3 % (0.0-0.8); Eosinophils # 0.4 10*3/uL (0.0-0.87); Eosinophils % 5.8 % (0.00-10.9); Hematocrit 24.9 VOL% (42.0-52.0); Immature Granulocytes % 0.4 %; Immature Granulocytes Absolute 0.03 #; Lymphocytes # 1.8 10*3/uL (1.4-4.0); Lymphocytes % 26.5 % (21.2-54.2); Mean Corpuscular HGB Conc 32.1 GM/DL (32-36); Mean Corpuscular Volume 83.3 FL (87-102); Mean Platelet Volume 10.1 FL (9.6-12.0); Monocytes % 7.5 % (1.7-12.7); Neutrophils % 59.5 % (38.7-73.9); Platelet Count 149 T/CUMM (130-400); Red Blood Count 2.99 MC/CUMM (3.8-5.5); Red Cell Distribution Width 14.1 % (9.3-17.3); White Blood Count 6.7 T/CUMM (4-12)
[2019-11-27 04:15] LABS: Calcium 8.2 MG/DL (8.5-10.1); Osmolality,Calculated 285.8 MOS/KG (273-304)
[2019-11-27] MEDS: INSULIN REGULAR 100 UNIT/ML SUBCUT SCH ×4 (08:35→20:38)
[2019-11-27] MEDS: ASPIRIN EC 325 MG TABLET PO SCH (08:36)
[2019-11-27] MEDS: TAMSULOSIN 0.4 MG CAPSULE PO SCH ×2 (08:36→20:38)
[2019-11-27] MEDS: atenoloL 25 MG TABLET PO SCH ×2 (08:37→20:37)
[2019-11-27] MEDS: PANTOPRAZOLE 40 MG TABLET PO SCH (08:37)
[2019-11-27] MEDS: FLECAINIDE 100 MG TABLET PO SCH ×2 (08:37→20:37)
[2019-11-27] MEDS: AZITHROMYCIN 250 MG TABLET PO SCH (08:38)
[2019-11-27] MEDS: allopurinoL 100 MG TABLET PO SCH ×2 (08:38→20:37)
[2019-11-27] MEDS: FUROSEMIDE 40 MG/4 ML VIAL IV SCH (08:42)
[2019-11-27] MEDS ORDERED: SODIUM CHLORIDE 0.65% NASAL SPRAY 45 ML BOTTLE BOTH NARES PRN (11:59)
[2019-11-27] MEDS: FUROSEMIDE 40 MG TABLET PO SCH (17:04)
[2019-11-27] MEDS: ENOXAPARIN 30 MG/0.3 ML SYRINGE SUBCUT SCH (20:36)
[2019-11-27] MEDS: cefTRIAXone 1,000 MG in SYRINGE 1 EACH IV SCH (20:38)
[2019-11-28] MEDS: HYDROmorphone 2 MG TABLET PO PRN ×2 (00:42→19:56)
[2019-11-28 05:50] LABS: Basophils % 0.4 % (0.0-0.8); Eosinophils # 0.4 10*3/uL (0.0-0.87); Eosinophils % 4.8 % (0.00-10.9); Hematocrit 25.2 VOL% (42.0-52.0); Hemoglobin 8.2 GM/DL (14.0-18.0); Immature Granulocytes % 0.4 %; Immature Granulocytes Absolute 0.03 #; Lymphocytes # 1.6 10*3/uL (1.4-4.0); Mean Corpuscular HGB Conc 32.5 GM/DL (32-36); Mean Corpuscular Volume 83.7 FL (87-102); Mean Platelet Volume 10.5 FL (9.6-12.0); Monocytes % 8.1 % (1.7-12.7); Neutrophils % 64.3 % (38.7-73.9); Platelet Count 165 T/CUMM (130-400); Red Blood Count 3.01 MC/CUMM (3.8-5.5); Red Cell Distribution Width 13.8 % (9.3-17.3); White Blood Count 7.3 T/CUMM (4-12)
[2019-11-28] MEDS: ONDANSETRON 4 MG/2 ML VIAL IV PRN (06:00)
[2019-11-28 06:15] LABS: Calcium 8.2 MG/DL (8.5-10.1); Osmolality,Calculated 287.4 MOS/KG (273-304)
[2019-11-28 06:17] LABS: Albumin 2.3 G/DL (3.4-5.0); Bilirubin,Total 0.5 MG/DL (0.2-1.0); Calcium 8.4 MG/DL (8.5-10.1); Osmolality,Calculated 287.4 MOS/KG (273-304); Total Protein 5.7 G/DL (6.4-8.3)
[2019-11-28] MEDS ORDERED: metOLazone 5 MG TABLET PO ONE (08:07)
[2019-11-28] MEDS ORDERED: POTASSIUM CHLORIDE 20 MEQ TABLET PO ONE (08:37)
[2019-11-28] MEDS ORDERED: ALBUTEROL/IPRATROPIUM 3 ML NEB RESP TX ONE (08:51)
[2019-11-28] MEDS ORDERED: MAGNESIUM HYDROXIDE SUSP 30 ML UDCUP PO ONE (08:52)
[2019-11-28] MEDS ORDERED: LACTULOSE 20 GM/30 ML UDCUP PO PRN (08:52)
[2019-11-28] MEDS: INSULIN REGULAR 100 UNIT/ML SUBCUT SCH ×4 (09:00→21:00)
[2019-11-28] MEDS: ASPIRIN EC 325 MG TABLET PO SCH (09:03)
[2019-11-28] MEDS: PANTOPRAZOLE 40 MG TABLET PO SCH (09:04)
[2019-11-28] MEDS: TAMSULOSIN 0.4 MG CAPSULE PO SCH ×2 (09:04→20:59)
[2019-11-28] MEDS: FLECAINIDE 100 MG TABLET PO SCH ×2 (09:04→20:58)
[2019-11-28] MEDS: atenoloL 25 MG TABLET PO SCH ×2 (09:05→21:00)
[2019-11-28] MEDS: AZITHROMYCIN 250 MG TABLET PO SCH (09:05)
[2019-11-28] MEDS: allopurinoL 100 MG TABLET PO SCH ×2 (09:05→20:59)
[2019-11-28] MEDS: FUROSEMIDE 40 MG TABLET PO SCH ×2 (09:06→09:07)
[2019-11-28] MEDS: hydrALAZINE 25 MG TABLET PO SCH ×2 (09:10→20:59)
[2019-11-28] MEDS: POLYETHYLENE GLYCOL POWDER 17 GM PACK PO SCH (09:11)
[2019-11-28] MEDS: ALBUTEROL/IPRATROPIUM 3 ML NEB RESP TX SCH ×2 (12:52→20:46)
[2019-11-28] MEDS: FUROSEMIDE 80 MG TABLET PO SCH (16:20)
[2019-11-28] MEDS: ENOXAPARIN 30 MG/0.3 ML SYRINGE SUBCUT SCH (20:57)
[2019-11-28] MEDS: cefTRIAXone 1,000 MG in SYRINGE 1 EACH IV SCH (20:58)
[2019-11-29] MEDS: ALBUTEROL/IPRATROPIUM 3 ML NEB RESP TX SCH ×2 (01:33→07:30)
[2019-11-29 05:12] LABS: Basophils % 0.3 % (0.0-0.8); Eosinophils # 0.5 10*3/uL (0.0-0.87); Eosinophils % 7.3 % (0.00-10.9); Hematocrit 24.7 VOL% (42.0-52.0); Hemoglobin 7.9 GM/DL (14.0-18.0); Immature Granulocytes % 0.4 %; Immature Granulocytes Absolute 0.03 #; Lymphocytes # 1.6 10*3/uL (1.4-4.0); Lymphocytes % 22.3 % (21.2-54.2); Mean Corpuscular Volume 85.2 FL (87-102); Mean Platelet Volume 10.4 FL (9.6-12.0); Monocytes % 6.8 % (1.7-12.7); Neutrophils % 62.9 % (38.7-73.9); Platelet Count 157 T/CUMM (130-400); White Blood Count 7.2 T/CUMM (4-12)
[2019-11-29 05:44] LABS: Albumin 2.2 G/DL (3.4-5.0); Bilirubin,Total 1.4 MG/DL (0.2-1.0); Osmolality,Calculated 283.8 MOS/KG (273-304); Total Protein 5.6 G/DL (6.4-8.3)
[2019-11-29] MEDS ORDERED: POTASSIUM CHLORIDE 20 MEQ TABLET PO ONE (07:40)
[2019-11-29 08:07] LABS: % Iron Saturation 11.1 % (18-50); Ferritin 133.1 ng/ml (26-388)
[2019-11-29] MEDS ORDERED: POTASSIUM CHLORIDE 20 MEQ TABLET PO SCH (09:00)
[2019-11-29] MEDS ORDERED: minoxidiL 2.5 MG TABLET PO SCH (09:00)
[2019-11-29] MEDS: AZITHROMYCIN 250 MG TABLET PO SCH (09:53)
[2019-11-29] MEDS: PANTOPRAZOLE 40 MG TABLET PO SCH (09:53)
[2019-11-29] MEDS: TAMSULOSIN 0.4 MG CAPSULE PO SCH (09:53)
[2019-11-29] MEDS: FUROSEMIDE 80 MG TABLET PO SCH (09:53)
[2019-11-29] MEDS: hydrALAZINE 25 MG TABLET PO SCH (09:53)
[2019-11-29] MEDS: ASPIRIN EC 325 MG TABLET PO SCH (09:54)
[2019-11-29] MEDS: FLECAINIDE 100 MG TABLET PO SCH (09:54)
[2019-11-29] MEDS: atenoloL 25 MG TABLET PO SCH (09:55)
[2019-11-29] MEDS: allopurinoL 100 MG TABLET PO SCH (09:56)
[2019-11-29] MEDS: POLYETHYLENE GLYCOL POWDER 17 GM PACK PO SCH (10:01)
[2019-11-29] MEDS: INSULIN REGULAR 100 UNIT/ML SUBCUT SCH ×2 (10:01→13:50)
[2019-11-29 12:23] VITALS: BP 184/76
[2019-11-29] MEDS ORDERED: FERROUS SULFATE 325 MG TABLET PO SCH (21:00)
== END 2019-11-29 14:00 | disposition home or self-care (01) | DRG 291 ==
LOC: N.ED 12:37 → N.EDINP 12:37 → SUATTDRO 19:09 → N.EDINP 19:45 → N.TELES 20:44
PROVIDERS: ADMIT Internal Medicine; ATTEND Internal Medicine

== ENCOUNTER 2020-06-14 17:12 | Inpatient (IN) ==
[2020-06-14] MEDS ORDERED: SODIUM CHLORIDE 0.9% 1,000 ML IV STA (17:38)
[2020-06-14 18:08] LABS: Apearance,Urine CLEAR (Clear); Bilirubin,Urine Negative (Negative); Blood, Urine Small mg/dL (Negative); Glucose,Urine (UA) 50 mg/dL (Negative); Hyaline Casts,Urine 7 /LPF (0-3); Ketones,Urine Negative (Negative); Mucus,Urine Occasional /LPF (Occasional); Nitrite,Urine Negative (Negative); Protein,Urine >=500 MG/DL; RBC,Urine 3 /HPF (0-4); Squamous Epithelial Cell,Urine Occasional /HPF (0-10); Urine Color Yellow (Yellow); Urine Specific Gravity 1.011 (1.001-1.035); Urine Urobilinogen < 2.0 EU/DL (0.2-1.0); WBC,Urine 3 /HPF (0-6)
[2020-06-14 18:16] LABS: Basophils % 0.5 % (0.0-0.8); Eosinophils # 0.2 10*3/uL (0.0-0.87); Eosinophils % 3.8 % (0.00-10.9); Hemoglobin 9.4 GM/DL (14.0-18.0); Immature Granulocytes % 0.5 %; Immature Granulocytes Absolute 0.02 #; Lymphocytes # 0.8 10*3/uL (1.4-4.0); Lymphocytes % 17.6 % (21.2-54.2); Mean Corpuscular HGB Conc 32.4 GM/DL (32-36); Mean Corpuscular Volume 80.3 FL (87-102); Mean Platelet Volume 9.8 FL (9.6-12.0); Monocytes % 11.3 % (1.7-12.7); Neutrophils % 66.3 % (38.7-73.9); Platelet Count 99 T/CUMM (130-400); Red Blood Count 3.61 MC/CUMM (3.8-5.5); Red Cell Distribution Width 15.9 % (9.3-17.3); White Blood Count 4.4 T/CUMM (4-12)
[2020-06-14 18:23] LABS: Barbiturates Screen,Urine Negative (Negative); Benzodiazepines Screen,Urine Negative (Negative); Cannabinoid Screen,Urine Negative (Negative); Opiate Screen,Urine Positive (Negative); Phencyclidine Screen,Urine Negative (Negative)
[2020-06-14 18:29] LABS: INR 1.1; PT Patient Result 12.1 SECS (9.8-11.9)
[2020-06-14 18:38] LABS: Alanine Aminotransferase 27 U/L (16-61); Albumin 2.6 G/DL (3.4-5.0); Alkaline Phosphatase 260 U/L (45-117); Aspartate Amino Transferase 45 U/L (0-37); Blood Urea Nitrogen 41 MG/DL (7-18); Calcium 9.5 MG/DL (8.5-10.1); Estimated Glom Filtration Rate 19 ML/MIN; Glucose 111 MG/DL (74-106); Total Protein 6.3 G/DL (6.4-8.3); Troponin I < 0.015 NG/ML (0.00-0.045)
[2020-06-14] MEDS ORDERED: chlorproMAZINE INJ 50 MG in SODIUM CHLORIDE 0.9% 100 ML IV PRN (19:48)
[2020-06-14] MEDS ORDERED: TEMAZEPAM 7.5 MG CAPSULE PO PRN (19:48)
[2020-06-14] MEDS ORDERED: ALUMINUM/MAGNES/SIMETH MAX STR 30 ML UDCUP PO PRN (19:48)
[2020-06-14] MEDS ORDERED: diphenhydrAMINE CAP 25 MG CAPSULE PO PRN (19:48)
[2020-06-14] MEDS ORDERED: guaiFENesin 200 MG/10 ML UDCUP PO PRN (19:48)
[2020-06-14] MEDS ORDERED: MAGNESIUM HYDROXIDE SUSP 30 ML UDCUP PO PRN (19:48)
[2020-06-14] MEDS ORDERED: LACTULOSE 20 GM/30 ML UDCUP PO PRN (19:48)
[2020-06-14] MEDS ORDERED: MYLANTA/LIDO VISC 2:1 300 ML BOTTLE SWISH/SPIT PRN (19:48)
[2020-06-14] MEDS ORDERED: chlorproMAZINE INJ 25 MG in SODIUM CHLORIDE 0.9% 100 ML IV PRN (19:48)
[2020-06-14] MEDS ORDERED: LOPERAMIDE 2 MG CAPSULE PO PRN (19:48)
[2020-06-14] MEDS ORDERED: chlorproMAZINE 25 MG TABLET PO PRN (19:48)
[2020-06-14] MEDS ORDERED: MYLANTA/LIDO VISC 2:1 300 ML BOTTLE SWISH/SWAL PRN (19:48)
[2020-06-14] MEDS ORDERED: ACETAMINOPHEN 325 MG TABLET PO PRN (19:48)
[2020-06-14] MEDS ORDERED: BENZTROPINE 2 MG/2 ML AMP IV PRN (19:48)
[2020-06-14 20:18] LABS: Uric Acid 5.8 MG/DL (3.5-7.2)
[2020-06-15] MEDS: ALPRAZolam 0.25 MG TABLET PO PRN (01:50)
[2020-06-15] MEDS: LORazepam 2 MG/1 ML VIAL IV PRN ×2 (06:19→11:39)
[2020-06-15] MEDS: PANTOPRAZOLE 40 MG VIAL IV SCH (09:13)
[2020-06-15] MEDS: DEXT 5% NACL 0.45% KCL 20 MEQ 20 MEQ/1,000 ML BAG IV SCH ×2 (09:31→20:48)
[2020-06-15] MEDS: amLODIPine 5 MG TABLET PO SCH (20:50)
[2020-06-15] MEDS: atenoloL 25 MG TABLET PO SCH (20:50)
[2020-06-15] MEDS: FLECAINIDE 100 MG TABLET PO SCH (20:50)
[2020-06-16] MEDS: LORazepam 2 MG/1 ML VIAL IV PRN (00:45)
[2020-06-16] MEDS: DEXT 5% NACL 0.45% KCL 20 MEQ 20 MEQ/1,000 ML BAG IV SCH ×3 (03:17→19:42)
[2020-06-16 05:29] LABS: Basophils % 0.4 % (0.0-0.8); Eosinophils # 0.2 10*3/uL (0.0-0.87); Eosinophils % 3.1 % (0.00-10.9); Hematocrit 30.2 VOL% (42.0-52.0); Hemoglobin 9.7 GM/DL (14.0-18.0); Immature Granulocytes % 0.8 %; Immature Granulocytes Absolute 0.04 #; Lymphocytes # 0.9 10*3/uL (1.4-4.0); Lymphocytes % 19.1 % (21.2-54.2); Mean Corpuscular HGB Conc 32.1 GM/DL (32-36); Mean Corpuscular Volume 81.4 FL (87-102); Mean Platelet Volume 10.1 FL (9.6-12.0); Monocytes % 9.4 % (1.7-12.7); Neutrophils % 67.2 % (38.7-73.9); Platelet Count 109 T/CUMM (130-400); Red Blood Count 3.71 MC/CUMM (3.8-5.5); White Blood Count 4.8 T/CUMM (4-12)
[2020-06-16 05:47] LABS: Albumin 2.5 G/DL (3.4-5.0); Bilirubin,Total 1.3 MG/DL (0.2-1.0); Calcium 8.9 MG/DL (8.5-10.1); Osmolality,Calculated 290.4 MOS/KG (273-304); Total Protein 5.9 G/DL (6.4-8.3)
[2020-06-16] MEDS: atenoloL 25 MG TABLET PO SCH ×2 (08:42→11:30)
[2020-06-16] MEDS: amLODIPine 5 MG TABLET PO SCH ×2 (08:42→11:30)
[2020-06-16] MEDS: ALPRAZolam 0.25 MG TABLET PO PRN (08:42)
[2020-06-16] MEDS: FLECAINIDE 100 MG TABLET PO SCH ×2 (09:07→11:30)
[2020-06-16] MEDS: PANTOPRAZOLE 40 MG VIAL IV SCH (09:08)
[2020-06-16] MEDS: LACTULOSE 20 GM/30 ML UDCUP PO SCH ×2 (11:29→20:41)
[2020-06-16] MEDS ORDERED: hydrALAZINE 20 MG/1 ML VIAL IV PRN (12:59)
[2020-06-16] MEDS: METOPROLOL TARTRATE 5 MG/5 ML VIAL IV SCH ×2 (14:15→18:26)
[2020-06-16] MEDS: HALOPERIDOL 5 MG/ML AMP IV PRN (22:47)
[2020-06-17] MEDS: METOPROLOL TARTRATE 5 MG/5 ML VIAL IV SCH ×5 (01:08→23:54)
[2020-06-17] MEDS: DEXT 5% NACL 0.45% KCL 20 MEQ 20 MEQ/1,000 ML BAG IV SCH ×3 (03:17→20:46)
[2020-06-17] MEDS: HALOPERIDOL 5 MG/ML AMP IV PRN ×2 (03:53→23:54)
[2020-06-17 05:36] LABS: Basophils % 0.6 % (0.0-0.8); Eosinophils # 0.2 10*3/uL (0.0-0.87); Hematocrit 30.5 VOL% (42.0-52.0); Hemoglobin 9.5 GM/DL (14.0-18.0); Immature Granulocytes % 0.8 %; Immature Granulocytes Absolute 0.04 #; Lymphocytes # 1.1 10*3/uL (1.4-4.0); Mean Corpuscular HGB Conc 31.1 GM/DL (32-36); Mean Corpuscular Volume 80.9 FL (87-102); Mean Platelet Volume 10.1 FL (9.6-12.0); Neutrophils % 64.6 % (38.7-73.9); Platelet Count 105 T/CUMM (130-400); Red Blood Count 3.77 MC/CUMM (3.8-5.5); Red Cell Distribution Width 16.2 % (9.3-17.3); White Blood Count 5.3 T/CUMM (4-12)
[2020-06-17 06:25] LABS: Albumin 2.4 G/DL (3.4-5.0); Bilirubin,Total 1.3 MG/DL (0.2-1.0); Calcium 8.5 MG/DL (8.5-10.1); Osmolality,Calculated 286.4 MOS/KG (273-304); Total Protein 5.6 G/DL (6.4-8.3)
[2020-06-17] MEDS: PANTOPRAZOLE 40 MG VIAL IV SCH (09:02)
[2020-06-17] MEDS ORDERED: hydrALAZINE 20 MG/1 ML VIAL IV ONE (12:01)
[2020-06-17] MEDS: LACTULOSE 20 GM/30 ML UDCUP PO SCH ×2 (15:19→20:47)
[2020-06-18] MEDS: DEXT 5% NACL 0.45% KCL 20 MEQ 20 MEQ/1,000 ML BAG IV SCH ×2 (03:28→13:17)
[2020-06-18] MEDS: METOPROLOL TARTRATE 5 MG/5 ML VIAL IV SCH ×3 (05:09→18:39)
[2020-06-18 06:25] LABS: Basophils % 0.5 % (0.0-0.8); Eosinophils # 0.1 10*3/uL (0.0-0.87); Eosinophils % 1.8 % (0.00-10.9); Hematocrit 30.4 VOL% (42.0-52.0); Hemoglobin 9.6 GM/DL (14.0-18.0); Immature Granulocytes % 0.8 %; Immature Granulocytes Absolute 0.05 #; Lymphocytes # 1.3 10*3/uL (1.4-4.0); Lymphocytes % 19.1 % (21.2-54.2); Mean Corpuscular HGB Conc 31.6 GM/DL (32-36); Mean Corpuscular Volume 81.7 FL (87-102); Monocytes % 9.2 % (1.7-12.7); Neutrophils % 68.6 % (38.7-73.9); Platelet Count 111 T/CUMM (130-400); Red Blood Count 3.72 MC/CUMM (3.8-5.5); Red Cell Distribution Width 16.8 % (9.3-17.3); White Blood Count 6.5 T/CUMM (4-12)
[2020-06-18 06:56] LABS: Albumin 2.4 G/DL (3.4-5.0); Bilirubin,Total 1.7 MG/DL (0.2-1.0); Calcium 8.2 MG/DL (8.5-10.1); Osmolality,Calculated 282.5 MOS/KG (273-304); Total Protein 5.7 G/DL (6.4-8.3)
[2020-06-18] MEDS ORDERED: LORazepam 2 MG/1 ML VIAL IV ONE (08:00)
[2020-06-18] MEDS ORDERED: PRAMIPEXOLE 0.25 MG TABLET PO PRN (08:15)
[2020-06-18] MEDS ORDERED: INSULIN GLARGINE 100 UNIT/ML SUBCUT PRN (08:15)
[2020-06-18] MEDS ORDERED: hydrOXYzine HCL 25 MG TABLET PO PRN (08:15)
[2020-06-18] MEDS: HALOPERIDOL 5 MG/ML AMP IV PRN ×2 (09:00→16:59)
[2020-06-18] MEDS: PANTOPRAZOLE 40 MG VIAL IV SCH (09:00)
[2020-06-18] MEDS: hydrALAZINE 20 MG/1 ML VIAL IV SCH ×3 (11:14→22:10)
[2020-06-18] MEDS: LACTULOSE 20 GM/30 ML UDCUP PO SCH ×2 (11:44→21:57)
[2020-06-18] MEDS: FUROSEMIDE 20 MG TABLET PO SCH (11:59)
[2020-06-18] MEDS: TAMSULOSIN 0.4 MG CAPSULE PO SCH ×2 (11:59→21:57)
[2020-06-18] MEDS: allopurinoL 100 MG TABLET PO SCH ×2 (12:00→21:57)
[2020-06-18] MEDS: ONDANSETRON 4 MG/2 ML VIAL IV PRN ×2 (12:51→23:03)
[2020-06-18] MEDS: PROMETHAZINE INJ 25 MG in SODIUM CHLORIDE 0.9% 50 ML IV PRN (18:25)
[2020-06-18] MEDS: DOXEPIN 25 MG CAPSULE PO SCH (21:57)
[2020-06-19] MEDS: METOPROLOL TARTRATE 5 MG/5 ML VIAL IV SCH ×4 (00:18→17:51)
[2020-06-19] MEDS: DEXT 5% NACL 0.45% KCL 20 MEQ 20 MEQ/1,000 ML BAG IV SCH ×5 (00:22→23:00)
[2020-06-19] MEDS: HALOPERIDOL 5 MG/ML AMP IV PRN ×2 (00:23→21:00)
[2020-06-19] MEDS: hydrALAZINE 20 MG/1 ML VIAL IV SCH ×4 (04:20→21:12)
[2020-06-19 04:45] LABS: Basophils % 0.4 % (0.0-0.8); Eosinophils # 0.1 10*3/uL (0.0-0.87); Hematocrit 31.5 VOL% (42.0-52.0); Hemoglobin 10.1 GM/DL (14.0-18.0); Immature Granulocytes % 0.8 %; Immature Granulocytes Absolute 0.06 #; Lymphocytes # 1.3 10*3/uL (1.4-4.0); Lymphocytes % 16.5 % (21.2-54.2); Mean Corpuscular HGB Conc 32.1 GM/DL (32-36); Mean Platelet Volume 10.3 FL (9.6-12.0); Monocytes % 7.3 % (1.7-12.7); Platelet Count 123 T/CUMM (130-400); Red Blood Count 3.89 MC/CUMM (3.8-5.5); Red Cell Distribution Width 17.2 % (9.3-17.3); White Blood Count 7.6 T/CUMM (4-12)
[2020-06-19 05:10] LABS: Platelet Estimate Normal
[2020-06-19 05:11] LABS: Hypochromasia Slight; Microcytosis Slight
[2020-06-19 05:31] LABS: Albumin 2.5 G/DL (3.4-5.0); Calcium 8.2 MG/DL (8.5-10.1); Osmolality,Calculated 283.5 MOS/KG (273-304); Total Protein 5.9 G/DL (6.4-8.3)
[2020-06-19] MEDS: ONDANSETRON 4 MG/2 ML VIAL IV PRN (06:17)
[2020-06-19] MEDS: PANTOPRAZOLE 40 MG VIAL IV SCH (08:14)
[2020-06-19] MEDS: LACTULOSE 20 GM/30 ML UDCUP PO SCH ×2 (08:16→20:03)
[2020-06-19] MEDS: FUROSEMIDE 20 MG TABLET PO SCH (08:17)
[2020-06-19] MEDS: allopurinoL 100 MG TABLET PO SCH ×2 (08:17→20:03)
[2020-06-19] MEDS: TAMSULOSIN 0.4 MG CAPSULE PO SCH ×2 (08:17→20:03)
[2020-06-19] MEDS: GRANISETRON 1 MG/1 ML VIAL IV SCH ×2 (10:13→20:56)
[2020-06-19] MEDS: DOXEPIN 25 MG CAPSULE PO SCH (20:03)
[2020-06-20] MEDS: METOPROLOL TARTRATE 5 MG/5 ML VIAL IV SCH ×4 (00:38→17:53)
[2020-06-20] MEDS: DEXT 5% NACL 0.45% KCL 20 MEQ 20 MEQ/1,000 ML BAG IV SCH ×2 (02:21→13:52)
[2020-06-20] MEDS: ONDANSETRON 4 MG/2 ML VIAL IV PRN ×2 (04:00→11:48)
[2020-06-20] MEDS: hydrALAZINE 20 MG/1 ML VIAL IV SCH ×4 (04:15→22:22)
[2020-06-20] MEDS: HALOPERIDOL 5 MG/ML AMP IV PRN ×2 (04:15→11:49)
[2020-06-20 07:01] LABS: Albumin 2.4 G/DL (3.4-5.0); Bilirubin,Total 2.4 MG/DL (0.2-1.0); Calcium 7.9 MG/DL (8.5-10.1); Osmolality,Calculated 289.3 MOS/KG (273-304); Total Protein 5.8 G/DL (6.4-8.3)
[2020-06-20 08:50] LABS: Basophils % 0.4 % (0.0-0.8); Eosinophils % 0.4 % (0.00-10.9); Hematocrit 31.5 VOL% (42.0-52.0); Immature Granulocytes % 0.5 %; Immature Granulocytes Absolute 0.05 #; Lymphocytes # 1.4 10*3/uL (1.4-4.0); Mean Corpuscular HGB Conc 31.7 GM/DL (32-36); Mean Platelet Volume 10.6 FL (9.6-12.0); Monocytes % 7.3 % (1.7-12.7); Neutrophils % 76.4 % (38.7-73.9); Platelet Count 141 T/CUMM (130-400); Red Blood Count 3.84 MC/CUMM (3.8-5.5); Red Cell Distribution Width 17.5 % (9.3-17.3); White Blood Count 9.5 T/CUMM (4-12)
[2020-06-20] MEDS: GRANISETRON 1 MG/1 ML VIAL IV SCH ×2 (09:18→20:22)
[2020-06-20] MEDS ORDERED: ATROPINE 0.4 MG/1 ML VIAL IV ONE (14:16)
[2020-06-20] MEDS ORDERED: HALOPERIDOL 5 MG/ML AMP IV ONE (14:16)
[2020-06-21] MEDS: METOPROLOL TARTRATE 5 MG/5 ML VIAL IV SCH ×4 (01:20→18:05)
[2020-06-21] MEDS: HALOPERIDOL 5 MG/ML AMP IV PRN ×2 (01:22→11:13)
[2020-06-21] MEDS: DEXT 5% NACL 0.45% KCL 20 MEQ 20 MEQ/1,000 ML BAG IV SCH ×4 (02:50→20:56)
[2020-06-21] MEDS: hydrALAZINE 20 MG/1 ML VIAL IV SCH ×4 (05:05→21:10)
[2020-06-21] MEDS: GRANISETRON 1 MG/1 ML VIAL IV SCH ×2 (09:16→21:03)
[2020-06-21] MEDS: PROMETHAZINE INJ 25 MG in SODIUM CHLORIDE 0.9% 50 ML IV PRN (11:12)
[2020-06-21] MEDS: traZODone 50 MG TABLET PO PRN (20:58)
[2020-06-21] MEDS: LOPERAMIDE 2 MG CAPSULE PO PRN (20:59)
[2020-06-22] MEDS: METOPROLOL TARTRATE 5 MG/5 ML VIAL IV SCH ×4 (00:58→17:00)
[2020-06-22] MEDS: LOPERAMIDE 2 MG CAPSULE PO PRN (03:11)
[2020-06-22] MEDS: HYDROmorphone 2 MG TABLET PO PRN (03:11)
[2020-06-22] MEDS: hydrALAZINE 20 MG/1 ML VIAL IV SCH ×4 (03:22→21:49)
[2020-06-22] MEDS: DEXT 5% NACL 0.45% KCL 20 MEQ 20 MEQ/1,000 ML BAG IV SCH ×3 (04:35→20:28)
[2020-06-22] MEDS: GRANISETRON 1 MG/1 ML VIAL IV SCH ×2 (09:02→20:28)
[2020-06-23] MEDS: METOPROLOL TARTRATE 5 MG/5 ML VIAL IV SCH ×4 (00:36→17:05)
[2020-06-23] MEDS: HALOPERIDOL 5 MG/ML AMP IV PRN ×2 (00:36→21:04)
[2020-06-23] MEDS: HYDROmorphone 2 MG TABLET PO PRN (02:12)
[2020-06-23] MEDS: DEXT 5% NACL 0.45% KCL 20 MEQ 20 MEQ/1,000 ML BAG IV SCH ×3 (04:38→21:02)
[2020-06-23] MEDS: hydrALAZINE 20 MG/1 ML VIAL IV SCH ×4 (05:00→21:04)
[2020-06-23] MEDS: amLODIPine 5 MG TABLET PO SCH ×2 (09:38→21:05)
[2020-06-23] MEDS: atenoloL 25 MG TABLET PO SCH ×2 (09:38→21:05)
[2020-06-23] MEDS: GRANISETRON 1 MG/1 ML VIAL IV SCH ×2 (09:39→21:05)
[2020-06-24] MEDS: METOPROLOL TARTRATE 5 MG/5 ML VIAL IV SCH ×4 (00:18→17:00)
[2020-06-24] MEDS: HALOPERIDOL 5 MG/ML AMP IV PRN (02:59)
[2020-06-24] MEDS: DEXT 5% NACL 0.45% KCL 20 MEQ 20 MEQ/1,000 ML BAG IV SCH (04:57)
[2020-06-24] MEDS: hydrALAZINE 20 MG/1 ML VIAL IV SCH ×4 (04:58→21:11)
[2020-06-24] MEDS: GRANISETRON 1 MG/1 ML VIAL IV SCH ×2 (08:41→20:59)
[2020-06-24] MEDS: amLODIPine 5 MG TABLET PO SCH ×2 (08:41→20:56)
[2020-06-24] MEDS: atenoloL 25 MG TABLET PO SCH ×2 (08:41→20:56)
[2020-06-24] MEDS: HALOPERIDOL 5 MG/ML AMP IV SCH (21:01)
[2020-06-25] MEDS: METOPROLOL TARTRATE 5 MG/5 ML VIAL IV SCH ×4 (00:40→17:30)
[2020-06-25] MEDS: hydrALAZINE 20 MG/1 ML VIAL IV SCH ×4 (03:04→21:40)
[2020-06-25] MEDS: HALOPERIDOL 5 MG/ML AMP IV PRN (03:09)
[2020-06-25] MEDS: atenoloL 25 MG TABLET PO SCH ×2 (08:11→21:35)
[2020-06-25] MEDS: amLODIPine 5 MG TABLET PO SCH ×2 (08:11→21:35)
[2020-06-25] MEDS: GRANISETRON 1 MG/1 ML VIAL IV SCH ×2 (08:11→21:28)
[2020-06-25] MEDS: HALOPERIDOL 5 MG/ML AMP IV SCH (21:30)
[2020-06-26] MEDS: METOPROLOL TARTRATE 5 MG/5 ML VIAL IV SCH ×5 (00:28→23:15)
[2020-06-26] MEDS: MORPHINE 4 MG/1 ML VIAL IV PRN (00:33)
[2020-06-26] MEDS: hydrALAZINE 20 MG/1 ML VIAL IV SCH ×4 (03:34→23:14)
[2020-06-26] MEDS: GRANISETRON 1 MG/1 ML VIAL IV SCH ×2 (09:36→21:10)
[2020-06-26] MEDS: atenoloL 25 MG TABLET PO SCH ×2 (10:36→21:10)
[2020-06-26] MEDS: amLODIPine 5 MG TABLET PO SCH ×2 (10:36→21:09)
[2020-06-26] MEDS: HYDROmorphone 2 MG TABLET PO PRN (21:09)
[2020-06-26] MEDS: HALOPERIDOL 5 MG/ML AMP IV SCH (21:10)
[2020-06-27] MEDS: hydrALAZINE 20 MG/1 ML VIAL IV SCH ×4 (05:33→21:41)
[2020-06-27] MEDS: METOPROLOL TARTRATE 5 MG/5 ML VIAL IV SCH ×3 (05:34→18:36)
[2020-06-27 07:00] LABS: Basophils # 0.1 10*3/uL (0.0-0.2); Basophils % 0.6 % (0.0-0.8); Eosinophils % 0.1 % (0.00-10.9); Hematocrit 29.6 VOL% (42.0-52.0); Immature Granulocytes % 1.3 %; Immature Granulocytes Absolute 0.11 #; Lymphocytes # 1.5 10*3/uL (1.4-4.0); Mean Corpuscular HGB Conc 30.4 GM/DL (32-36); Mean Corpuscular Volume 84.3 FL (87-102); Mean Platelet Volume 10.1 FL (9.6-12.0); Monocytes % 9.1 % (1.7-12.7); Neutrophils % 71.9 % (38.7-73.9); Platelet Count 127 T/CUMM (130-400); Red Blood Count 3.51 MC/CUMM (3.8-5.5); Red Cell Distribution Width 18.3 % (9.3-17.3); White Blood Count 8.7 T/CUMM (4-12)
[2020-06-27 07:16] LABS: Bilirubin,Total 0.9 MG/DL (0.2-1.0); Calcium 8.3 MG/DL (8.5-10.1); Osmolality,Calculated 296.8 MOS/KG (273-304); Total Protein 5.8 G/DL (6.4-8.3)
[2020-06-27] MEDS: GRANISETRON 1 MG/1 ML VIAL IV SCH ×2 (10:20→21:40)
[2020-06-27] MEDS: atenoloL 25 MG TABLET PO SCH ×2 (10:21→21:41)
[2020-06-27] MEDS: amLODIPine 5 MG TABLET PO SCH ×2 (10:21→21:41)
[2020-06-27] MEDS: MORPHINE 4 MG/1 ML VIAL IV PRN (12:00)
[2020-06-27] MEDS: HALOPERIDOL 5 MG/ML AMP IV SCH (21:40)
[2020-06-28] MEDS: METOPROLOL TARTRATE 5 MG/5 ML VIAL IV SCH ×3 (00:22→12:30)
[2020-06-28] MEDS: hydrALAZINE 20 MG/1 ML VIAL IV SCH ×3 (04:52→17:00)
[2020-06-28] MEDS: atenoloL 25 MG TABLET PO SCH ×2 (09:26→20:49)
[2020-06-28] MEDS: amLODIPine 5 MG TABLET PO SCH ×2 (09:27→20:49)
[2020-06-28] MEDS: GRANISETRON 1 MG/1 ML VIAL IV SCH (09:27)
[2020-06-28] MEDS: HALOPERIDOL 5 MG/ML AMP IV SCH (20:52)
[2020-06-29] MEDS: HALOPERIDOL 5 MG/ML AMP IV PRN (04:44)
[2020-06-29 07:00] LABS: Basophils # 0.1 10*3/uL (0.0-0.2); Basophils % 0.6 % (0.0-0.8); Eosinophils % 0.1 % (0.00-10.9); Hematocrit 28.6 VOL% (42.0-52.0); Hemoglobin 8.9 GM/DL (14.0-18.0); Immature Granulocytes % 1.2 %; Immature Granulocytes Absolute 0.09 #; Lymphocytes # 1.5 10*3/uL (1.4-4.0); Lymphocytes % 19.6 % (21.2-54.2); Mean Corpuscular HGB Conc 31.1 GM/DL (32-36); Mean Corpuscular Volume 83.9 FL (87-102); Mean Platelet Volume 9.6 FL (9.6-12.0); Monocytes % 8.1 % (1.7-12.7); Neutrophils % 70.4 % (38.7-73.9); Platelet Count 148 T/CUMM (130-400); Red Blood Count 3.41 MC/CUMM (3.8-5.5); Red Cell Distribution Width 18.2 % (9.3-17.3); White Blood Count 7.7 T/CUMM (4-12)
[2020-06-29 07:26] LABS: Albumin 2.2 G/DL (3.4-5.0); Bilirubin,Total 0.9 MG/DL (0.2-1.0); Calcium 8.4 MG/DL (8.5-10.1); Osmolality,Calculated 302.4 MOS/KG (273-304); Total Protein 5.9 G/DL (6.4-8.3)
[2020-06-29 08:25] LABS: Basophils % 0.6 % (0.0-0.8); Eosinophils % 0.1 % (0.00-10.9); Hematocrit 28.2 VOL% (42.0-52.0); Immature Granulocytes Absolute 0.07 #; Lymphocytes # 1.3 10*3/uL (1.4-4.0); Lymphocytes % 18.4 % (21.2-54.2); Mean Corpuscular HGB Conc 31.9 GM/DL (32-36); Mean Corpuscular Volume 81.7 FL (87-102); Mean Platelet Volume 10.7 FL (9.6-12.0); Neutrophils % 72.9 % (38.7-73.9); Platelet Count 132 T/CUMM (130-400); Red Blood Count 3.45 MC/CUMM (3.8-5.5); Red Cell Distribution Width 18.2 % (9.3-17.3)
[2020-06-29] MEDS: atenoloL 25 MG TABLET PO SCH ×2 (09:43→20:45)
[2020-06-29] MEDS: amLODIPine 5 MG TABLET PO SCH ×2 (09:44→20:43)
[2020-06-29] MEDS: HALOPERIDOL 5 MG/ML AMP IV SCH (20:39)
[2020-06-29] MEDS: traZODone 50 MG TABLET PO PRN (20:43)
[2020-06-30] MEDS: HALOPERIDOL 5 MG/ML AMP IV PRN (03:54)
[2020-06-30] MEDS: atenoloL 25 MG TABLET PO SCH ×2 (08:48→20:50)
[2020-06-30] MEDS: amLODIPine 5 MG TABLET PO SCH ×2 (08:48→20:50)
[2020-06-30] MEDS: HALOPERIDOL 5 MG/ML AMP IV SCH (20:48)
[2020-06-30] MEDS: traZODone 50 MG TABLET PO PRN (20:50)
[2020-07-01] MEDS: amLODIPine 5 MG TABLET PO SCH (08:20)
[2020-07-01] MEDS: atenoloL 25 MG TABLET PO SCH (08:20)
[2020-07-01 12:12] VITALS: BP 157/86
== END 2020-07-01 13:40 | disposition hospice, inpatient (51) | DRG 435 ==
LOC: EDBD → EDUNIT# → N.EDINP 17:12 → N.ED 17:12 → N.4E 06-15 00:16
PROVIDERS: ADMIT Specialist; ATTEND Specialist